=== PATIENT | female | born 1990 | race African-American/Black ===

== ENCOUNTER 2017-05-12 16:25 | Emergency (ER) | payer SELFPAY ==
[~2017-05-12] VITALS: Ht 170.2 cm; Wt 52.0 kg
[~2017-05-12 16:25] MED LIST: ALBUCI INH; CEPH500C3 PO; FLAG500T PO; PREN0.01 PO
[2017-05-12 16:27] VITALS: BP 130/95; PULSE 103; RESP 20; TEMP 98.1; O2SAT 98
[2017-05-12] MEDS ORDERED: SODIUM CHLOR 0.9% 1000 ML INJ 1,000 ML IV ONE (16:57)
[2017-05-12] MEDS ORDERED: ONDANSETRON HCL 4 MG/2 ML VIAL IVP ONE (17:00)
--- NOTE | 2017-05-12 17:12 | PD ---
HPI Chief Complaint: GI Complaint Time Seen by Provider: 16:49 Travel History International Travel<30 days: No Contact w/Intl Traveler<30days: No Traveled to known affect area: No History of Present Illness HPI 26-year-old female presents to the emergency department for evaluation of nausea and vomiting for 3 days. She states she is unable to keep any food or fluids down. Patient states that she is . She reports her last menstrual cycle was the end of March/beginning of March. She has not followed up with an painter rough. She is a G4, P2 with 2 live births and one previous . Patient states that she also has some left lower pelvic pain , especially when she vomits. She denies any urinary symptoms. She has no chronic medical problems and takes no prescribed medications. She reports one sexual partner for 4 years. She denies any abnormal vaginal discharge or risk of STDs. She has no other complaints at this time. PFSH Past Medical History Medical History: Denies Significant Hx Tetanus Vaccination: < 5 Years ?: LMP: 04/04/17 : 3 Para: 2 Past Surgical History Surgical History: No Previous Surgery Social History Alcohol Use: No Tobacco Use: No Substance Use: No Allergies-Medications (Allergen,Severity, Reaction): Coded Allergies: No Known Allergies (Unverified Adverse Reaction, Unknown, 05/12/17) Reported Meds & Prescriptions Reported Meds & Active Scripts Active No Active Prescriptions or Reported Medications Review of Systems Except as stated in HPI: all other systems reviewed are Neg Physical Exam Narrative GENERAL: Well-nourished, well-developed female patient, ambulatory. Afebrile. SKIN: Focused skin assessment warm/dry. HEAD: Normocephalic. Atraumatic. EYES: No scleral icterus. No injection or drainage. NECK: Supple, trachea midline. No JVD or lymphadenopathy. CARDIOVASCULAR: Regular rate and rhythm without murmurs, gallops, or rubs. RESPIRATORY: Breath sounds equal bilaterally. No accessory muscle use. Lungs sounds are clear to auscultation. GASTROINTESTINAL: Abdomen soft, non-tender, nondistended. Mild tenderness over left pelvic region. MUSCULOSKELETAL: No cyanosis, or edema. BACK: Nontender without obvious deformity. No CVA tenderness. Data Data Last Documented VS Vital Signs Date Time Temp Pulse Resp B/P (MAP) Pulse Ox O2 Delivery O2 Flow Rate FiO2 05/12/17 18:20 11/12/17 16:27 98.1 103 20 98 Orders Orders Beta Hcg (Quant/Titer) (05/12/17 16:57) Complete Blood Count With Diff (05/12/17 16:57) Comprehensive Metabolic Panel (05/12/17 16:57) Urinalysis - C+S If Indicated (05/12/17 16:57) Sodium Chlor 0.9% 1000 Ml Inj (Ns 1000 M (05/12/17 16:57) Ondansetron Inj (Zofran Inj) (05/12/17 17:00) Ed Urine Pregnancytest Poc (05/12/17 16:57) Us Pelvis (Ques Pr/Ect)W Trans (05/12/17 ) Labs Laboratory Tests Test 05/12/17 17:00 05/12/17 17:45 White Blood Count 5.5 TH/MM3 Red Blood Count 4.00 MIL/MM3 Hemoglobin 10.9 GM/DL Hematocrit 31.5 % Mean Corpuscular Volume 78.9 FL Mean Corpuscular Hemoglobin 27.2 PG Mean Corpuscular Hemoglobin Concent 34.4 % Red Cell Distribution Width 16.2 % Platelet Count 202 TH/MM3 Mean Platelet Volume 9.1 FL Neutrophils (%) (Auto) 52.8 % Lymphocytes (%) (Auto) 36.4 % Monocytes (%) (Auto) 8.4 % Eosinophils (%) (Auto) 1.5 % Basophils (%) (Auto) 0.9 % Neutrophils # (Auto) 2.9 TH/MM3 Lymphocytes # (Auto) 2.0 TH/MM3 Monocytes # (Auto) 0.5 TH/MM3 Eosinophils # (Auto) 0.1 TH/MM3 Basophils # (Auto) 0.1 TH/MM3 CBC Comment DIFF FINAL Differential Comment Blood Urea Nitrogen 5 MG/DL Creatinine 0.58 MG/DL Random Glucose 82 MG/DL Total Protein 7.5 GM/DL Albumin 4.1 GM/DL Calcium Level 8.9 MG/DL Alkaline Phosphatase 43 U/L Aspartate Amino Transf (AST/SGOT) 14 U/L Alanine Aminotransferase (ALT/SGPT) 20 U/L Total Bilirubin 0.6 MG/DL Sodium Level 133 MEQ/L Potassium Level 3.6 MEQ/L Chloride Level 101 MEQ/L Carbon Dioxide Level 24.2 MEQ/L Anion Gap 8 MEQ/L Estimat Glomerular Filtration Rate 155 ML/MIN Human Chorionic Gonadotropin, Quant 33232 MIU/ML Urine Color YELLOW Urine Turbidity HAZY Urine pH 7.0 Urine Specific [place] 1.020 Urine Protein TRACE mg/dL Urine Glucose (UA) NEG mg/dL Urine Ketones 40 mg/dL Urine Occult Blood NEG Urine Nitrite NEG Urine Bilirubin NEG Urine Urobilinogen 4.0 MG/DL Urine Leukocyte Esterase SMALL Urine RBC 3 /hpf Urine WBC 4 /hpf Urine Squamous Epithelial Cells 1 /hpf Urine Amorphous Sediment FEW Urine Mucus FEW /lpf Microscopic Urinalysis Comment CULT NOT INDICATED MDM Medical Decision Making Medical Screen Exam Complete: Yes Emergency Medical Condition: Yes Medical Record Reviewed: Yes Differential Diagnosis Nausea and vomiting during versus hyperemesis gravidarum versus electrolyte abnormality versus UTI versus unlikely ectopic Narrative Course 26-year-old female presents to the emergency department for evaluation of nausea and vomiting for 3 days. She also reports some mild left pelvic pain with vomiting. She reports . CBC, CMP, UA, beta hCG, urine test are ordered and pending. Patient is given normal saline 1 L IV bolus, Zofran 4 mg IV. CBC shows anemia of hemoglobin 10.9, hematocrit 31.5. [place] [address]. UA shows 40 ketones, small leukocyte esterase. UPT is positive. Before ultrasound was read by radiologist, the patient states she had to leave and left AGAINST MEDICAL ADVICE. Diagnosis Primary Impression: Left against medical advice Additional Impression: Vomiting during Scripts No Active Prescriptions or Reported Meds Disposition: 07 AGAINST MEDICAL ADVICE Isabel Quinones May 12, 2017 17:12
[2017-05-12 17:28] LABS: AUTOMATED NEUTROPHIL # 2.9 TH/MM3 (1.8-7.7); BASOPHIL # 0.1 TH/MM3 (0-0.2); BASOPHIL % 0.9 % (0.0-2.0); EOSINOPHIL # 0.1 TH/MM3 (0-0.4); EOSINOPHIL % 1.5 % (0.0-4.0); HEMATOCRIT 31.5 % (35.0-46.0); HEMO FLAGS DIFF FINAL; LYMPH % 36.4 % (9.0-44.0); MEAN CELL VOLUME 78.9 FL (80.0-100.0); MEAN CORPUSCULAR HEMOGLOBIN 27.2 PG (27.0-34.0); MEAN CORPUSCULAR HGB CONC 34.4 % (32.0-36.0); MONO % 8.4 % (0.0-8.0); NEUT % 52.8 % (16.0-70.0); PLATELET COUNT 202 TH/MM3 (150-450); RED CELL DISTRIBUTION WIDTH 16.2 % (11.6-17.2); WHITE BLOOD COUNT 5.5 TH/MM3 (4.0-11.0)
[2017-05-12 17:30] LABS: ALT (GPT) 20 U/L (10-53); ANION GAP 8 MEQ/L (5-15); AST (GOT) 14 U/L (15-37); BICARBONATE 24.2 MEQ/L (21.0-32.0); BLOOD UREA NITROGEN 5 MG/DL (7-18); CHLORIDE 101 MEQ/L (98-107); GLOMERULAR FILTRATION RATE 155 ML/MIN (>89); POTASSIUM 3.6 MEQ/L (3.5-5.1); SODIUM (NA) 133 MEQ/L (136-145)
[2017-05-12 17:48] LABS: ALKALINE PHOSPHATASE 43 U/L (45-117); BETA HCG QUANT 28041 MIU/ML (0-5); TOTAL BILIRUBIN ADULT 0.6 MG/DL (0.2-1.0)
[2017-05-12 18:19] LABS: BLOOD, URINE NEG (NEG); GLUCOSE,URINE NEG (NEG); KETONE, URINE 40 mg/dL (NEG); MUCUS URINE FEW /lpf (OCC); NITRITE,URINE NEG (NEG); SQUAMOUS EPITHELIAL CELL URINE 1 /hpf (0-5); URINE COLOR YELLOW (YELLW/STRAW)
[2017-05-12 18:24] LABS: COMMENT (UR) CULT NOT INDICATED; CULTURE IF INDICATED CULT NOT INDICATED
--- NOTE | 2017-05-12 18:33 | RADRPT ---
EXAM DATE/TIME: 05/12/2017 17:35 [facility] COMPARISON: No previous studies available for comparison. INDICATIONS : Pelvic pain. LAB(S): Beta-hC MEDICAL HISTORY : . SURGICAL HISTORY : None. ENCOUNTER: Initial ACUITY: 1 month PAIN SCORE: 8/10 LOCATION: Bilateral pelvis MEASUREMENTS: UTERUS: 8.7 x 6.0 x 4.9 cm ENDOMETRIAL STRIPE: 17 mm RIGHT OVARY: 6.0 x 5.4 x 5.5 cm LEFT OVARY: Not visualized. cm FREE FLUID: Yes CROWN RUMP LENGTH: 0.3 = 6 WKS 0 DAYS FHR: 167 BPM FINDINGS: UTERUS: Uterus is retroverted. Endometrial gestational sac measures 1.7 cm in diameter corresponding to a ges tational age of 6 weeks. pole is identified measuring 3 mm in length again corresponding to a g estational age of 6 weeks. heart motions are identified 167 beats per minute. Yolk sac is prese nt. RIGHT OVARY: Dominant right ovarian cyst occupies most of the parenchyma and measures 5.4 x 5.1 x 4.1 cm LEFT OVARY: Left ovary was not visualized. MISCELLANEOUS: Free fluid was identified. CONCLUSION: 1. Viable intrauterine with an estimated gestational age of 6 weeks. 2. Dominant right ovarian cyst measures 5.4 cm in diameter and may be contributing to current clinica l symptoms. Small amount of free fluid was identified. 3. Left ovary could not be identified on the transabdominal exam. Due to discomfort, the patient refu sed any further transvaginal examination. Wayne Mittal MD on May 12, 2017 at 18:27 Board Certified Radiologist. This report was verified electronically.
== END 2017-05-12 18:30 | disposition left against medical advice (07) ==
LOC: NEPE 16:25
DX: O21.9 Vomiting of pregnancy, unspecified (principal); O26.891 Other specified pregnancy related conditions, first trimester; R10.2 Pelvic and perineal pain; Z3A.01 Less than 8 weeks gestation of pregnancy
CPT/HCPCS: 76700; 76817; 80053; 81001; 84702; 84703; 85025; 96374; 99285; J2405; J7030

== ENCOUNTER 2017-06-28 13:52 | Emergency (ER) | payer OTHER ==
[~2017-06-28] VITALS: Ht 170.2 cm; Wt 53.5 kg
[2017-06-28 13:54] VITALS: BP 120/79; PULSE 101; RESP 20; TEMP 99.2; O2SAT 99
[2017-06-28 15:15] LABS: AUTOMATED NEUTROPHIL # 6.2 TH/MM3 (1.8-7.7); BASOPHIL % 0.4 % (0.0-2.0); EOSINOPHIL # 0.1 TH/MM3 (0-0.4); EOSINOPHIL % 1.5 % (0.0-4.0); HEMATOCRIT 35.6 % (35.0-46.0); HEMOGLOBIN 11.5 GM/DL (11.6-15.3); LYMPH % 22.9 % (9.0-44.0); LYMPHOCYTE # 2.1 TH/MM3 (1.0-4.8); MEAN CELL VOLUME 82.1 FL (80.0-100.0); MEAN CORPUSCULAR HEMOGLOBIN 26.5 PG (27.0-34.0); MEAN CORPUSCULAR HGB CONC 32.3 % (32.0-36.0); MEAN PLATELET VOLUME 8.5 FL (7.0-11.0); MONO % 6.7 % (0.0-8.0); MONOCYTE # 0.6 TH/MM3 (0-0.9); NEUT % 68.5 % (16.0-70.0); PLATELET COUNT 255 TH/MM3 (150-450); RED BLOOD COUNT 4.33 MIL/MM3 (4.00-5.30); RED CELL DISTRIBUTION WIDTH 15.8 % (11.6-17.2); WHITE BLOOD COUNT 9.1 TH/MM3 (4.0-11.0)
[2017-06-28 15:19] LABS: BACTERIA, URINE RARE /hpf; BILIRUBIN, URINE NEG (NEG); BLOOD, URINE TRACE (NEG); GLUCOSE,URINE 70 mg/dL (NEG); KETONE, URINE NEG (NEG); NITRITE,URINE NEG (NEG); SQUAMOUS EPITHELIAL CELL URINE 5 /hpf (0-5); URINE COLOR LIGHT-YELLOW (YELLW/STRAW); URINE LEUKOCYTE ESTERASE LARGE (NEG)
[2017-06-28 15:32] LABS: ALBUMIN 3.6 GM/DL (3.4-5.0); AST (GOT) 14 U/L (15-37); BLOOD UREA NITROGEN 10 MG/DL (7-18); CALCIUM 9.5 MG/DL (8.5-10.1); CHLORIDE 103 MEQ/L (98-107); CREATININE 0.64 MG/DL (0.50-1.00); GLOMERULAR FILTRATION RATE 138 ML/MIN (>89); GLUCOSE,RANDOM 89 MG/DL (74-106); SODIUM (NA) 137 MEQ/L (136-145)
--- NOTE | 2017-06-28 15:39 | PD ---
HPI Chief Complaint: Related Problem Time Seen by Provider: 15:07 Travel History International Travel<30 days: No Contact w/Intl Traveler<30days: No Traveled to known affect area: No History of Present Illness HPI The patient is a 26-year-old [place] female who presents to the emergency department for lower abdominal cramping and . The patient is a with one previous AB who states her last menstrual cycle was approximately March 19, 2017. She has had a positive test but has not had any care. She complains of lower abdominal cramping as well as white vaginal discharge which is slightly thicker than normal. She also complains of mild dysuria without any frequency or urgency. She denies any vaginal bleeding. The patient denies any nausea, vomiting, diarrhea, or constipation. Symptoms are mild to moderate and there are no alleviating or exacerbating factors. PFSH Past Medical History Kidney Stones: Yes ?: LMP: March : 3 Para: 2 Past Surgical History Surgical History: No Previous Surgery Social History Alcohol Use: No Tobacco Use: No Substance Use: No Allergies-Medications (Allergen,Severity, Reaction): Coded Allergies: No Known Allergies (Unverified Adverse Reaction, Unknown, 06/28/17) Reported Meds & Prescriptions Reported Meds & Active Scripts Active Zofran (Ondansetron HCl) 4 Mg Tab 4 Mg PO Q6HR PRN Metronidazole 500 Mg Tab 500 Mg PO TID Keflex (Cephalexin) 500 Mg Capsule 500 Mg PO Q6H 7 Days Review of Systems Except as stated in HPI: all other systems reviewed are Neg General / Constitutional: No: Fever Cardiovascular: No: Chest Pain or Discomfort Gastrointestinal: No: Nausea, Vomiting, Diarrhea, Abdominal Pain Genitourinary: Positive: Dysuria, Pelvic Pain (cramping), Discharge, No: Urgency, Frequency, Vaginal Bleeding Musculoskeletal: No: Myalgias Physical Exam Narrative GENERAL: Awake, alert, pleasant 26-year-old female who appears her stated age and is in no acute respiratory distress. SKIN: Focused skin assessment warm/dry. HEAD: Atraumatic. Normocephalic. EYES: Pupils equal and round. No scleral icterus. No injection or drainage. ENT: No nasal bleeding or discharge. Mucous membranes pink and moist. NECK: Trachea midline. No JVD. CARDIOVASCULAR: Regular rate and rhythm. No murmur appreciated. Heart rate in the 90s. RESPIRATORY: No accessory muscle use. Clear to auscultation. Breath sounds equal bilaterally. GASTROINTESTINAL: Abdomen soft, gravid inferior to the umbilicus. Back: No CVA tenderness. Pelvic: The exam was performed in the presence of a female nurse. External examination reveals no rashes or lesions. Speculum examination reveals a fair amount of white creamy discharge in the vaginal vault. Cervix is closed with mild erythema over the superior aspect of the os. No adnexal tenderness. No cervical motion tenderness. MUSCULOSKELETAL: No obvious deformities. No clubbing. No cyanosis. No edema. NEUROLOGICAL: Awake and alert. No obvious cranial nerve deficits. Motor grossly within normal limits. Normal speech. PSYCHIATRIC: Appropriate mood and affect; insight and judgment normal. Data Data Last Documented VS Vital Signs Date Time Temp Pulse Resp B/P (MAP) Pulse Ox O2 Delivery O2 Flow Rate FiO2 06/28/17 18:31 88 15 99 06/28/17 13:54 99.2 Room Air Orders Orders Beta Hcg (Quant/Titer) (06/28/17 14:01) Complete Blood Count With Diff (06/28/17 14:01) Comprehensive Metabolic Panel (06/28/17 14:01) Urinalysis - C+S If Indicated (06/28/17 14:01) Urine Culture (06/28/17 14:40) Ed Poc Ultrasound (06/28/17 15:23) Sodium Chlor 0.9% 1000 Ml Inj (Ns 1000 M (06/28/17 15:45) Wet Prep Profile (06/28/17 15:58) Ed Discharge Order (06/28/17 18:27) Labs Laboratory Tests Test 06/28/17 14:40 06/28/17 14:50 06/28/17 16:20 Urine Color LIGHT-YELLOW Urine Turbidity HAZY Urine pH 7.0 Urine Specific [place] 1.006 Urine Protein NEG mg/dL Urine Glucose (UA) 70 mg/dL Urine Ketones NEG mg/dL Urine Occult Blood TRACE Urine Nitrite NEG Urine Bilirubin NEG Urine Urobilinogen LESS THAN 2.0 MG/DL Urine Leukocyte Esterase LARGE Urine RBC 3 /hpf Urine WBC 11 /hpf Urine Squamous Epithelial Cells 5 /hpf Urine Bacteria RARE /hpf Microscopic Urinalysis Comment CULTURE INDICATED White Blood Count 9.1 TH/MM3 Red Blood Count 4.33 MIL/MM3 Hemoglobin 11.5 GM/DL Hematocrit 35.6 % Mean Corpuscular Volume 82.1 FL Mean Corpuscular Hemoglobin 26.5 PG Mean Corpuscular Hemoglobin Concent 32.3 % Red Cell Distribution Width 15.8 % Platelet Count 255 TH/MM3 Mean Platelet Volume 8.5 FL Neutrophils (%) (Auto) 68.5 % Lymphocytes (%) (Auto) 22.9 % Monocytes (%) (Auto) 6.7 % Eosinophils (%) (Auto) 1.5 % Basophils (%) (Auto) 0.4 % Neutrophils # (Auto) 6.2 TH/MM3 Lymphocytes # (Auto) 2.1 TH/MM3 Monocytes # (Auto) 0.6 TH/MM3 Eosinophils # (Auto) 0.1 TH/MM3 Basophils # (Auto) 0.0 TH/MM3 CBC Comment DIFF FINAL Differential Comment Blood Urea Nitrogen 10 MG/DL Creatinine 0.64 MG/DL Random Glucose 89 MG/DL Total Protein 7.7 GM/DL Albumin 3.6 GM/DL Calcium Level 9.5 MG/DL Alkaline Phosphatase 53 U/L Aspartate Amino Transf (AST/SGOT) 14 U/L Alanine Aminotransferase (ALT/SGPT) 13 U/L Total Bilirubin 0.3 MG/DL Sodium Level 137 MEQ/L Potassium Level 3.4 MEQ/L Chloride Level 103 MEQ/L Carbon Dioxide Level 27.0 MEQ/L Anion Gap 7 MEQ/L Estimat Glomerular Filtration Rate 138 ML/MIN Human Chorionic Gonadotropin, Quant 04596 MIU/ML Clue Cells (Wet Prep) PRESENT Vaginal Trichomonas (Wet Prep) NONE SEEN Vaginal Yeast (Wet Prep) NONE SEEN MDM Medical Decision Making Medical Screen Exam Complete: Yes Emergency Medical Condition: Yes Medical Record Reviewed: Yes Interpretation(s) Laboratory Tests Test 06/28/17 14:40 06/28/17 14:50 06/28/17 16:20 Urine Color LIGHT-YELLOW Urine Turbidity HAZY Urine pH 7.0 Urine Specific [place] 1.006 Urine Protein NEG mg/dL Urine Glucose (UA) 70 mg/dL Urine Ketones NEG mg/dL Urine Occult Blood TRACE Urine Nitrite NEG Urine Bilirubin NEG Urine Urobilinogen LESS THAN 2.0 MG/DL Urine Leukocyte Esterase LARGE Urine RBC 3 /hpf Urine WBC 11 /hpf Urine Squamous Epithelial Cells 5 /hpf Urine Bacteria RARE /hpf Microscopic Urinalysis Comment CULTURE INDICATED White Blood Count 9.1 TH/MM3 Red Blood Count 4.33 MIL/MM3 Hemoglobin 11.5 GM/DL Hematocrit 35.6 % Mean Corpuscular Volume 82.1 FL Mean Corpuscular Hemoglobin 26.5 PG Mean Corpuscular Hemoglobin Concent 32.3 % Red Cell Distribution Width 15.8 % Platelet Count 255 TH/MM3 Mean Platelet Volume 8.5 FL Neutrophils (%) (Auto) 68.5 % Lymphocytes (%) (Auto) 22.9 % Monocytes (%) (Auto) 6.7 % Eosinophils (%) (Auto) 1.5 % Basophils (%) (Auto) 0.4 % Neutrophils # (Auto) 6.2 TH/MM3 Lymphocytes # (Auto) 2.1 TH/MM3 Monocytes # (Auto) 0.6 TH/MM3 Eosinophils # (Auto) 0.1 TH/MM3 Basophils # (Auto) 0.0 TH/MM3 CBC Comment DIFF FINAL Differential Comment Blood Urea Nitrogen 10 MG/DL Creatinine 0.64 MG/DL Random Glucose 89 MG/DL Total Protein 7.7 GM/DL Albumin 3.6 GM/DL Calcium Level 9.5 MG/DL Alkaline Phosphatase 53 U/L Aspartate Amino Transf (AST/SGOT) 14 U/L Alanine Aminotransferase (ALT/SGPT) 13 U/L Total Bilirubin 0.3 MG/DL Sodium Level 137 MEQ/L Potassium Level 3.4 MEQ/L Chloride Level 103 MEQ/L Carbon Dioxide Level 27.0 MEQ/L Anion Gap 7 MEQ/L Estimat Glomerular Filtration Rate 138 ML/MIN Human Chorionic Gonadotropin, Quant 31182 MIU/ML Differential Diagnosis Differential diagnosis includes UTI, cervicitis, vaginitis, PID, , threatened AB, dehydration. Narrative Course Protocol labs were performed in triage by nursing staff. Upon arrival to the room a bedside ultrasound was performed using a curvilinear probe which reveals a fetus that is IUP, there is positive activity and positive movement. According to the calendar, March 19, the patient would be approximately 14 weeks and 3 days. OB ED will not take the patient until 16 weeks. Therefore, pelvic exam was performed at bedside for wet prep and to evaluate the cervix with a female nurse in the room. The patient declined an IV for IV fluids, states that she is scared needles. Therefore, she was given oral fluids. Pelvic exam was performed and wet prep was sent to lab. I reviewed the patient's EMR, she had blood work on September 22, 2013 which revealed she is O+, no indication for RhoGAM. UA reveals UTI. Wet prep is positive for bacterial vaginosis, therefore, will be treated with Flagyl. She is advised to follow-up with obstetrics. Diagnosis Primary Impression: Pelvic pain in Additional Impression: UTI (urinary tract infection) Qualified Codes: N30.00 - Acute cystitis without hematuria Patient Instructions: General Instructions Additional Instructions: Please provide the patient a copy of her lab work and urine results at discharge. Follow-up with an gold leaf layer. Take a vitamin daily. Return for pain or bleeding. Med/Other Pt SpecificInfo: Prescription(s) given Scripts Ondansetron (Zofran) 4 Mg Tab 4 MG PO Q6HR Y for NAUSEA OR VOMITING, #15 TAB 0 Refills Prov: Olegario Antoine MD 06/28/17 Metronidazole (Metronidazole) 500 Mg Tab 500 MG PO TID for Infection, #20 TAB 0 Refills Prov: Olegario Antoine MD 06/28/17 Cephalexin (Keflex) 500 Mg Capsule 500 MG PO Q6H for Infection for 7 Days, #28 CAP 0 Refills Prov: Lefty Torres MD 06/28/17 Disposition: 01 DISCHARGE HOME Condition: Stable Lefty Torres MD Jun 28, 2017 15:39
[2017-06-28] MEDS ORDERED: SODIUM CHLOR 0.9% 1000 ML INJ 1,000 ML IV ONE (15:45)
[2017-06-28 15:50] LABS: ALKALINE PHOSPHATASE 53 U/L (45-117); ALT (GPT) 13 U/L (10-53); TOTAL BILIRUBIN ADULT 0.3 MG/DL (0.2-1.0); TOTAL PROTEIN 7.7 GM/DL (6.4-8.2)
[2017-06-28] MEDS ORDERED: CEPH-460 PO (16:54)
[2017-06-28] MEDS ORDERED: METR1TAB76 PO (18:27)
[2017-06-28] MEDS ORDERED: ZOFR4TAB PO (18:36)
== END 2017-06-28 18:37 | disposition home or self-care (01) ==
LOC: NEPD 13:52
DX: O23.42 Unspecified infection of urinary tract in pregnancy, second trimester (principal); O23.592 Infection of other part of genital tract in pregnancy, second trimester; N76.0 Acute vaginitis; B96.89 Other specified bacterial agents as the cause of diseases classified elsewhere; Z3A.14 14 weeks gestation of pregnancy; Z34.92 Encounter for supervision of normal pregnancy, unspecified, second trimester; Z87.442 Personal history of urinary calculi
CPT/HCPCS: 80053; 81001; 84702; 85025; 87086; 87210; 99284; J7030

== ENCOUNTER 2017-10-20 22:50 | Emergency (ER) | payer MEDICAID, OTHER ==
[~2017-10-20 22:50] MED LIST changes: -ALBUCI INH; +CEPH-460 PO; -CEPH500C3 PO; -FLAG500T PO; +METR1TAB76 PO; -PREN0.01 PO; +ZOFR4TAB PO
--- NOTE | 2017-10-20 23:55 | PD ---
HPI Chief Complaint ctxs, ? lof Date Seen: Oct 20, 2017 Time Seen: 23:49 Travel History International Travel<30 Days: No Contact w/Intl Traveler<30Days: No Known Affected Area: No History of Present Illness HPI pt. is a 27 y/o @ 29 weeks present w/ c/o ctxs. pt. states been having ctxs thruout the day that have increased in freq and insiyt. pt. also note clear d/c, and not sure if broke her water. +FM, no vb. amniosure - Weeks Gestation: 29 Para: 2 : 4 History Past Medical History Medical History: Denies Significant Hx Obstetric History Obstetric History , x 2, tab x 1 Past Surgical History Surgical History: No Previous Surgery Family History Family History: Negative Social History Alcohol Use: No Tobacco Use: No Substance Abuse: No Allergies-Medications (Allergen,Severity, Reaction): Coded Allergies: No Known Allergies (Unverified Adverse Reaction, Unknown, 06/28/17) Home Meds Active Scripts Ondansetron (Zofran) 4 Mg Tab, 4 MG PO Q6HR Y for NAUSEA OR VOMITING, #15 TAB 0 Refills Prov:Olegario Antoine MD 06/28/17 Metronidazole (Metronidazole) 500 Mg Tab, 500 MG PO TID for Infection, #20 TAB 0 Refills Prov:Olegario Antoine MD 06/28/17 Cephalexin (Keflex) 500 Mg Capsule, 500 MG PO Q6H for Infection for 7 Days, #28 CAP 0 Refills Prov:Lefty Torres MD 06/28/17 Review of Systems Except as stated in HPI: all other systems reviewed are Neg Physical Exam Narrative GENERAL: Well-nourished, well-developed patient. SKIN: Warm and dry. HEAD: Normocephalic and atraumatic. EYES: No scleral icterus. No injection or drainage. ENT: No nasal drainage noted. Mucous membranes pink. Airway patent. NECK: Supple, trachea midline. No JVD. CARDIOVASCULAR: Regular rate and rhythm without murmurs, gallops, or rubs. RESPIRATORY: Breath sounds equal bilaterally. No accessory muscle use. ABDOMEN/GI: Abdomen soft, non-tender, bowel sounds present, no rebound, no guarding Gravid GENITOURINARY: External Genitalia: intact and normal in appearance Cervix:posterior Dilatation: 1 Effacement: long Station: high Membranes: intact, amniosure - Uterine Contractions: irreg FHT's: Category: 1 Reactive: + Variability: mod Decels: danial EXTREMITIES: No cyanosis or edema. BACK: Nontender without obvious deformity. No CVA tenderness. NEUROLOGICAL: Awake and alert. Motor and sensory grossly within normal limits. Five out of 5 muscle strength in all muscle groups. Normal speech. Data Data Vital Signs Reviewed: Yes Orders Orders Urinalysis - C+S If Indicated (10/20/17 23:46) [facility] Medical Record Reviewed: Yes Plan pt. not in active labor. pt. given dose of terbutaline w/ spacing of ctxs. pt. cervix rechecked w/o change. pt. w/ uti, macrobid 100mg bid for 5 days. condtion d/w pt. all ? answered. pt. to be d/c to home. given precautions for return. f/u as sched. Diagnosis Diagnosis: Primary Impression: Uterine contractions during Additional Impression: 29 weeks gestation of Disposition: DISCHARGE HOME Max Mccracken Jr., MD Oct 20, 2017 23:55
[2017-10-21 00:44] LABS: AMORPHOUS SEDIMENT, URINE RARE; BACTERIA, URINE OCC /hpf; BILIRUBIN, URINE NEG (NEG); BLOOD, URINE NEG (NEG); GLUCOSE,URINE NEG (NEG); HYALINE CAST, URINE 2 /lpf (RARE); KETONE, URINE NEG (NEG); MUCUS URINE FEW /lpf (OCC); NITRITE,URINE NEG (NEG); SQUAMOUS EPITHELIAL CELL URINE 3 /hpf (0-5); URINE COLOR YELLOW (YELLW/STRAW); URINE LEUKOCYTE ESTERASE LARGE (NEG)
[2017-10-21] MEDS ORDERED: ACETAMINOPHEN 500 MG CPLT PO ONE (00:45)
[2017-10-21] MEDS ORDERED: TERBUTALINE INJ 1 MG/ML AMP ONE (01:30)
[2017-10-21] MEDS ORDERED: diphenhydrAMINE HCL 50 MG CAP PO ONE (02:30)
== END 2017-10-21 02:50 | disposition home or self-care (01) ==
LOC: HOBED 22:50
DX: O26.93 Pregnancy related conditions, unspecified, third trimester (principal); O23.43 Unspecified infection of urinary tract in pregnancy, third trimester; Z3A.29 29 weeks gestation of pregnancy
CPT/HCPCS: 59025; 81001; 84112; 96372; 99284; J3105; Q0163

== ENCOUNTER 2017-12-19 22:35 | Inpatient (IN) | payer MEDICAID ==
[~2017-12-19] VITALS: Ht 170.2 cm; Wt 70.0 kg
--- NOTE | 2017-12-19 23:30 | HHI.HP ---
HPI Chief Complaint Painful swelling in limbs and under her underarms, severe abdominal pain comes and goes all day, she saw spots in front of her eyes just now in OB ED Date Seen: Dec 19, 2017 Time Seen: 23:22 Travel History International Travel<30 Days: No Contact w/Intl Traveler<30Days: No Known Affected Area: No History of Present Illness HPI Patient 27-year-old black female A1 at 37 --38 weeks who presents complaining of severe abdominal pain pain goes down in her legs and groin all day, complains of severe swelling with pain in her aches both legs and under her underarms, no bleeding, leakage of fluid, she is melonie every 3-4 minutes and the heart rate tracing is reactive. Her blood pressure is 142 /87 and she says she has no history of hypertension she describes taken her blood pressure at home it was 140s /90 earlier today. Here on OB ED while we were in the room the patient said she is having" the spots in front of my eyes" , she denies a headache Weeks Gestation: 37 Para: 2 : 4 Miscarriage: 1 History Obstetric History Obstetric History 2 vaginal deliveries no history of hypertension in with the other 2 pregnancies Social History Alcohol Use: No Tobacco Use: No Substance Abuse: No Allergies-Medications (Allergen,Severity, Reaction): Coded Allergies: No Known Allergies (Unverified Adverse Reaction, Unknown, 06/28/17) Home Meds Active Scripts Ondansetron (Zofran) 4 Mg Tab, 4 MG PO Q6HR Y for NAUSEA OR VOMITING, #15 TAB 0 Refills Prov:Olegario Antoine MD 06/28/17 Metronidazole (Metronidazole) 500 Mg Tab, 500 MG PO TID for Infection, #20 TAB 0 Refills Prov:Olegario Antoine MD 06/28/17 Cephalexin (Keflex) 500 Mg Capsule, 500 MG PO Q6H for Infection for 7 Days, #28 CAP 0 Refills Prov:Lefty Torres MD 06/28/17 Review of Systems General / Constitutional: No: Fever, Weight Gain, Chills, Other Eyes: Visual changes, No: Diploplia, Blurred Vision, Pain, Photophobia HENT: No: Headaches, Vertigo, Lightheadedness Cardiovascular: No: Irregular Rhythm, Chest Pain or Discomfort, Palpitations, Tachycardia, Syncope, Varicosities, Edema, Cyanosis Respiratory: No: Cough, Short of Breath, Other Gastrointestinal: Abdominal Pain, No: Nausea, Vomiting, Diarrhea Genitourinary: No: Decreased Urinary Output, Oliguria Musculoskeletal: Edema, No: Limited ROM, Weakness, Cramping, Pain Skin: No Rash, No Itching, No Dryness, No Lumps, No Change in Pigmentation, No Change in Nails, No Alopecia, No Lesions Neurologic: No: Weakness, Dizziness, Syncope, Focal Abnormalities, Coordination Problem, Headache, Slurred Speech, Seizures Psychiatric: No: Depression, Suicidal Ideations, Homicidal Ideation Endocrine: No: Heat Intolerance, Cold Intolerance, Polydipsia, Polyuria, Other Physical Exam Narrative GENERAL: Well-nourished, well-developed patient. SKIN: Warm and dry. HEAD: Normocephalic and atraumatic. EYES: No scleral icterus. No injection or drainage. ENT: No nasal drainage noted. Mucous membranes pink. Airway patent. NECK: Supple, trachea midline. No JVD. CARDIOVASCULAR: Regular rate and rhythm without murmurs, gallops, or rubs. RESPIRATORY: Breath sounds equal bilaterally. No accessory muscle use. BREASTS: Bilateral exam showed no masses , no retractions, no nipple discharge. The tail of the breast on both side is enlarged up under the axilla and that is the swelling she is describing in the axillary tail of the breasts are swollen ABDOMEN/GI: Abdomen soft, non-tender, bowel sounds present, no rebound, no guarding Gravid to [37-] weeks size Fundal Height: [35-] GENITOURINARY: External Genitalia: intact and normal in appearance BUS glands: [-] Cervix: [-mid] Dilatation: [3-4-] Effacement: [-70] Station: [-2] Presentation: [vtx-] Membranes: [intact ] Uterine Contractions: [-q 3-4 min] FHT's: Category: [1-] Baseline: [133-] Reactive: [R-] Variability: [mod-] Decels: [-0] EXTREMITIES: No cyanosis 3+ pitting edema in pretibial area painful. BACK: Nontender without obvious deformity. No CVA tenderness. NEUROLOGICAL: Awake and alert. Motor and sensory grossly within normal limits. Five out of 5 muscle strength in all muscle groups. Normal speech. Caprini VTE Risk Assessment Caprini VTE Risk Assessment: No/Low Risk (score <= 1) Caprini Risk Assessment Model Point Value = 1 Point Value = 2 Point Value = 3 Point Value = 5 Age 41-60 Minor surgery BMI > 25 kg/m2 Swollen legs Varicose veins or History of unexplained or recurrent spontaneous Oral contraceptives or hormone replacement Sepsis (< 1 month) Serious lung disease, including pneumonia (< 1 month) Abnormal pulmonary function Acute myocardial infarction Congestive heart failure (< 1 month) History of inflammatory bowel disease Medical patient at bed rest Age 61-74 Arthroscopic surgery Major open surgery (> 45 min) Laparoscopic surgery (> 45 min) Malignancy Confined to bed (> 72 hours) Immobilizing plaster cast Central venous access Age >= 75 History of VTE Family history of VTE Factor V Leiden Prothrombin [id number] Lupus anticoagulant Anticardiolipin antibodies Elevated serum homocysteine Heparin-induced thrombocytopenia Other congenital or acquired thrombophilia Stroke (< 1 month) Elective arthroplasty Hip, pelvis, or leg fracture Acute spinal cord injury (< 1 month) Prophylaxis Regimen Total Risk Factor Score Risk Level Prophylaxis Regimen 0-1 Low Early ambulation 2 Moderate Order ONE of the following: *Sequential Compression Device (SCD) *Heparin 5000 units SQ BID 3-4 Higher Order ONE of the following medications: *Heparin 5000 units SQ TID *Enoxaparin/Lovenox 40 mg SQ daily (WT < 150 kg, CrCl > 30 mL/min) *Enoxaparin/Lovenox 30 mg SQ daily (WT < 150 kg, CrCl > 10-29 mL/min) *Enoxaparin/Lovenox 30 mg SQ BID (WT < 150 kg, CrCl > 30 mL/min) AND/OR *Sequential Compression Device (SCD) 5 or more Highest Order ONE of the following medications: *Heparin 5000 units SQ TID (Preferred with Epidurals) *Enoxaparin/Lovenox 40 mg SQ daily (WT < 150 kg, CrCl > 30 mL/min) *Enoxaparin/Lovenox 30 mg SQ daily (WT < 150 kg, CrCl > 10-29 mL/min) *Enoxaparin/Lovenox 30 mg SQ BID (WT < 150 kg, CrCl > 30 mL/min) AND *Sequential Compression Device (SCD) Data Data Group B Strep: Negative Assessment/Plan Assessment and Plan Impression--37-38 week intrauterine with hypertension in , severe pedal edema, early labor with contractions every 3-4 minutes cervical dilation of 3-4 cm/70/-2 Plan-admit to labor and delivery, check PIH lab, if blood pressures persistently elevated above the admitting value begin magnesium sulfate and plan to augment her labor as needed to affect cervical change and vaginal delivery Kenyon Abreu II, MD Dec 19, 2017 23:30
[2017-12-19] MEDS ORDERED: LACTATED RINGER'S 1000 ML INJ 1,000 ML IV SCH (23:31)
[2017-12-19] MEDS ORDERED: LACTATED RINGER'S 1000 ML INJ 1,000 ML IV PRN (23:31)
[2017-12-19] MEDS ORDERED: OXYTOCIN 30 UNITS-500ML PREMIX 500 ML IV ONE (23:45)
[2017-12-19] MEDS ORDERED: CITRIC ACID-SODIUM CITRATE LIQ 30 ML UDC PO SCH (23:45)
[2017-12-19] MEDS ORDERED: LIDOCAINE HCL 1% 50 ML VIAL I-DERMAL PRN (23:45)
[2017-12-19] MEDS ORDERED: SODIUM CHLORID 0.9% 500 ML INJ 500 ML IV PRN (23:45)
[2017-12-19] MEDS ORDERED: MINERAL OIL 10 ML VIAL TOPICAL PRN (23:45)
[2017-12-19] MEDS ORDERED: LIDOCAINE HCL 1% 50 ML VIAL INFIL PRN (23:45)
[2017-12-19] MEDS ORDERED: SODIUM CHLOR 0.9% 1000 ML INJ 1,000 ML IV PRN (23:51)
[2017-12-20] VITALS (68 sets, daily range): BP systolic 109–155; BP diastolic 70–117; PULSE 50–98; RESP 16–20; TEMP 97.7–98.7
[2017-12-20 00:59] LABS: AUTOMATED NEUTROPHIL # 6.1 TH/MM3 (1.8-7.7); BASOPHIL % 0.3 % (0.0-2.0); EOSINOPHIL # 0.1 TH/MM3 (0-0.4); EOSINOPHIL % 1.3 % (0.0-4.0); HEMOGLOBIN 8.6 GM/DL (11.6-15.3); LYMPH % 25.3 % (9.0-44.0); LYMPHOCYTE # 2.4 TH/MM3 (1.0-4.8); MEAN CELL VOLUME 72.5 FL (80.0-100.0); MEAN CORPUSCULAR HEMOGLOBIN 22.9 PG (27.0-34.0); MEAN CORPUSCULAR HGB CONC 31.6 % (32.0-36.0); MEAN PLATELET VOLUME 10.5 FL (7.0-11.0); MONO % 7.9 % (0.0-8.0); MONOCYTE # 0.7 TH/MM3 (0-0.9); NEUT % 65.2 % (16.0-70.0); PLATELET COUNT 162 TH/MM3 (150-450); RED BLOOD COUNT 3.73 MIL/MM3 (4.00-5.30); RED CELL DISTRIBUTION WIDTH 15.8 % (11.6-17.2); WHITE BLOOD COUNT 9.3 TH/MM3 (4.0-11.0)
[2017-12-20 01:16] LABS: ALBUMIN 2.9 GM/DL (3.4-5.0); ALT (GPT) 12 U/L (10-53); AST (GOT) 18 U/L (15-37); BICARBONATE 23.6 MEQ/L (21.0-32.0); BLOOD UREA NITROGEN 5 MG/DL (7-18); CALCIUM 8.8 MG/DL (8.5-10.1); CHLORIDE 104 MEQ/L (98-107); CREATININE 0.61 MG/DL (0.50-1.00); GLOMERULAR FILTRATION RATE 145 ML/MIN (>89); GLUCOSE,RANDOM 73 MG/DL (74-106); SODIUM (NA) 140 MEQ/L (136-145)
[2017-12-20 01:18] LABS: ALKALINE PHOSPHATASE 198 U/L (45-117); TOTAL BILIRUBIN ADULT 0.4 MG/DL (0.2-1.0); TOTAL PROTEIN 7.6 GM/DL (6.4-8.2)
[2017-12-20 01:29] LABS: BACTERIA, URINE RARE /hpf; BILIRUBIN, URINE NEG (NEG); BLOOD, URINE NEG (NEG); GLUCOSE,URINE NEG (NEG); KETONE, URINE TRACE mg/dL (NEG); MUCUS URINE FEW /lpf (OCC); NITRITE,URINE NEG (NEG); SQUAMOUS EPITHELIAL CELL URINE 2 /hpf (0-5); URINE COLOR YELLOW (YELLW/STRAW); URINE LEUKOCYTE ESTERASE TRACE (NEG)
[2017-12-20] MEDS ORDERED: OXYTOCIN 30 UNITS-500ML PREMIX 500 ML IV PRN (08:45)
--- NOTE | 2017-12-20 09:49 | PD.OB.ANTE ---
Subjective Interval History No complaints or changes at this time. Pedal edema is mildly improved. Blood pressures have ranged from the 130s-140s over 80s since admission. Patient denies any chest pain, shortness of breath or right upper quadrant pain. Objective Vital Signs Vital Signs Date Time Temp Pulse Resp B/P (MAP) Pulse Ox O2 Delivery O2 Flow Rate FiO2 12/20/17 09:15 16 12/20/17 09:07 98.1 12/20/17 09:04 64 141/88 (105) 12/20/17 08:34 70 142/89 (106) 12/20/17 08:32 98 146/100 (115) 12/20/17 07:15 16 12/20/17 07:05 71 126/70 (88) 12/20/17 06:24 87 109/73 (85) 12/20/17 06:22 16 12/20/17 05:28 18 12/20/17 05:27 50 144/80 (101) 12/20/17 04:12 97.8 18 12/20/17 04:11 81 145/88 (107) 12/20/17 03:16 18 12/20/17 03:15 67 140/89 (106) 12/20/17 02:07 18 12/20/17 02:02 74 141/81 (101) 12/20/17 01:11 78 142/79 (100) 12/20/17 01:10 20 12/20/17 00:15 98.4 18 12/20/17 00:14 81 151/101 (118) Lab & Micro Results Test 12/19/17 23:50 12/20/17 01:10 White Blood Count 9.3 TH/MM3 Red Blood Count 3.73 MIL/MM3 Hemoglobin 8.6 GM/DL Hematocrit 27.0 % Mean Corpuscular Volume 72.5 FL Mean Corpuscular Hemoglobin 22.9 PG Mean Corpuscular Hemoglobin Concent 31.6 % Red Cell Distribution Width 15.8 % Platelet Count 162 TH/MM3 Mean Platelet Volume 10.5 FL Neutrophils (%) (Auto) 65.2 % Lymphocytes (%) (Auto) 25.3 % Monocytes (%) (Auto) 7.9 % Eosinophils (%) (Auto) 1.3 % Basophils (%) (Auto) 0.3 % Neutrophils # (Auto) 6.1 TH/MM3 Lymphocytes # (Auto) 2.4 TH/MM3 Monocytes # (Auto) 0.7 TH/MM3 Eosinophils # (Auto) 0.1 TH/MM3 Basophils # (Auto) 0.0 TH/MM3 CBC Comment DIFF FINAL Differential Comment Blood Urea Nitrogen 5 MG/DL Creatinine 0.61 MG/DL Random Glucose 73 MG/DL Total Protein 7.6 GM/DL Albumin 2.9 GM/DL Calcium Level 8.8 MG/DL Uric Acid 4.1 MG/DL Alkaline Phosphatase 198 U/L Aspartate Amino Transf (AST/SGOT) 18 U/L Alanine Aminotransferase (ALT/SGPT) 12 U/L Total Bilirubin 0.4 MG/DL Sodium Level 140 MEQ/L Potassium Level 3.3 MEQ/L Chloride Level 104 MEQ/L Carbon Dioxide Level 23.6 MEQ/L Anion Gap 12 MEQ/L Estimat Glomerular Filtration Rate 145 ML/MIN Urine Color YELLOW Urine Turbidity CLEAR Urine pH 8.0 Urine Specific E[place]y 1.008 Urine Protein 30 mg/dL Urine Glucose (UA) NEG mg/dL Urine Ketones TRACE mg/dL Urine Occult Blood NEG Urine Nitrite NEG Urine Bilirubin NEG Urine Urobilinogen 2.0 mg/dL Urine Leukocyte Esterase TRACE Urine RBC 1 /hpf Urine WBC 2 /hpf Urine Squamous Epithelial Cells 2 /hpf Urine Bacteria RARE /hpf Urine Mucus FEW /lpf Microscopic Urinalysis Comment CULT NOT INDICATED Urine Opiates Screen NEG Urine Barbiturates Screen NEG Urine Amphetamines Screen NEG Urine Benzodiazepines Screen NEG Urine Cocaine Screen NEG Urine Cannabinoids Screen POS Physical Exam SKIN: Warm and dry. HEAD: Normocephalic and atraumatic. EYES: No scleral icterus. No injection or drainage. ENT: No nasal drainage noted. Mucous membranes pink. Airway patent. NECK: Supple, trachea midline. No JVD. CARDIOVASCULAR: Regular rate and rhythm without murmurs, gallops, or rubs. RESPIRATORY: Breath sounds equal bilaterally. No accessory muscle use. ABDOMEN/GI: Abdomen soft, non-tender, bowel sounds present, no rebound, no guarding Gravid to [37-] weeks size Fundal Height: [35-] GENITOURINARY: External Genitalia: intact and normal in appearance Cervix: [-mid] Dilatation: [3-4-] Effacement: [-70] Station: [-2] Presentation: [vtx-] Membranes: [intact] Uterine Contractions: [-q 5-6 min] FHT's: Category: [1-] Baseline: [135-] Reactive: [R-] Variability: [mod-] Decels: [-0] EXTREMITIES: No cyanosis 2+ pitting edema in pretibial area painful. Improved from prior exam BACK: Nontender without obvious deformity. No CVA tenderness. NEUROLOGICAL: Awake and alert. Motor and sensory grossly within normal limits. Five out of 5 muscle strength in all muscle groups. Normal speech. Assessment and Plan Assessment and Plan 37/5 week intrauterine with hypertension in . Also with vision changes on admission. Admitting for induction of labor PIH labs on admission benign, blood pressures been borderline elevated since admission Per patient report she is GBS negative, obtaining records AROM performed at 0840 with clear fluid observed. IUPC was also placed at that time. Starting Pitocin at 08/02/29 We will recheck for cervical change in 2-3 hours SDW Anatoly Jones MD R1 Dec 20, 2017 09:49
[2017-12-20] MEDS ORDERED: fentaNYL 2MCG-BUPIV 0.125% INJ 150 ML EPIDURAL ONE (12:34)
[2017-12-20] MEDS ORDERED: ePHEDrine/NS 25 MG/5 ML SYRINGE ONE (12:35)
--- NOTE | 2017-12-20 12:47 | PD.LABORPN ---
Subjective Subjective Patient evaluated by Dr. Miller and Dr. Moe. Patient states that she is feeling some rectal pressure with contractions. Contractions becoming more intense. (Anatoly Moe MD R1) Objective Vital Signs Vital Signs Date Time Temp Pulse Resp B/P (MAP) Pulse Ox O2 Delivery O2 Flow Rate FiO2 12/20/17 12:00 68 135/83 (100) 12/20/17 11:32 73 137/97 (110) 12/20/17 11:30 76 145/104 (118) 12/20/17 11:15 18 12/20/17 11:01 98.7 12/20/17 11:00 76 138/92 (107) 12/20/17 10:39 73 154/100 (118) 12/20/17 10:30 65 149/115 (126) 12/20/17 10:15 16 12/20/17 10:00 73 133/88 (103) 12/20/17 09:30 74 139/87 (104) 12/20/17 09:15 16 12/20/17 09:07 98.1 12/20/17 09:04 64 141/88 (105) 12/20/17 08:34 70 142/89 (106) 12/20/17 08:32 98 146/100 (115) 12/20/17 07:15 16 12/20/17 07:05 71 126/70 (88) 12/20/17 06:24 87 109/73 (85) 12/20/17 06:22 16 12/20/17 05:28 18 12/20/17 05:27 50 144/80 (101) Objective Pelvic Exam: Dilatation: 5-6 Effacement: 80 Station: -1 Presentation: Vertex Membranes: Ruptured Uterine Contractions: Every 2-3 minutes FHT's: Category: 1 Baseline: 130 Reactive: Y Variability: Moderate Decels: Absent Weeks Gestation: 37 (Anatoly Moe MD R1) Assessment/Plan Assessment and Plan 27-year-old at 37/5 week intrauterine with hypertension in . Admitted for induction of labor PIH labs on admission benign, blood pressures been borderline elevated since admission Per patient report she is GBS negative, obtaining records AROM performed at 0840 with clear fluid observed. IUPC was also placed at that time. Pitocin started at 08/02/29, titrated up for adequate contractions Patient now at 5-6/80/-1 Category 1 FHT Patient electing for epidural at this time SDW Dr. Miller (Anatoly Moe MD R1) Assessment and Plan pt seen and examined. agree with above. BPs stable. cont pit. for epidural (Александр Miller MD) Anatoly Moe MD R1 Dec 20, 2017 12:47 Александр Miller MD Dec 20, 2017 14:28
[2017-12-20] MEDS ORDERED: DO NOT ADMINISTER ANTICOAGULANTS PRN (14:00)
[2017-12-20] MEDS ORDERED: fentaNYL 2MCG-BUPIV 0.125% 150 ML EPIDURAL PRN (14:00)
[2017-12-20] MEDS ORDERED: ePHEDrine/NS 25 MG/5 ML SYRINGE IV PUSH PRN (14:00)
[2017-12-20] MEDS ORDERED: NO SYSTEM NARCOTICS PRN (14:00)
--- NOTE | 2017-12-20 15:14 | PD.OB.DELI ---
Weeks gestation: 37 Pt started active labor?: Yes Active labor start date: Dec 20, 2017 Active labor start time: 12:30 Medical induction of labor?: Yes Artificial rupture of membrane: Yes Artificial ROM date: Dec 20, 2017 Artifical ROM time: 08:30 Anesthesia: Epidural Episiotomy: None Vaginal Delivery: Normal Presentation: Occiput anterior Nuchal Cord: None Delayed cord clamping (45 sec): Yes Infant: Female Delivery date: Dec 20, 2017 Delivery time: 15:00 One Minute : 8 Five Minute : 9 Weight: 2977 g Placenta: Spontaneous delivery, Intact, 3 vessel cord Laceration: No lacerations Estimated blood loss: 100 mL Additional Information Head delivered by maternal effort. Anterior shoulder delivered without complications. No complications with placental delivery. No lacerations visualized. Anatoly Moe MD R1 Dec 20, 2017 15:14
[2017-12-20] MEDS ORDERED: ACETAMINOPHEN 325 MG TAB PO PRN (15:15)
[2017-12-20] MEDS ORDERED: SODIUM CHLORIDE 0.9% FLUSH 10 ML FLUSH IV FLUSH PRN (15:15)
[2017-12-20] MEDS ORDERED: BENZOCAINE 20% TOPICAL SPRAY 60 ML CAN TOPICAL PRN (15:15)
[2017-12-20] MEDS ORDERED: ZOLPIDEM TARTRATE 5 MG TAB PO PRN (15:15)
[2017-12-20] MEDS ORDERED: DOCUSATE SODIUM 50 MG/SENNA 8.6 MG TAB PO PRN (15:15)
[2017-12-20] MEDS ORDERED: WITCH HAZEL 50%/GLYCERIN 12.5% 40 PAD JAR TOPICAL PRN (15:15)
[2017-12-20] MEDS ORDERED: ALUMINUM/MAGNESIUM/SIMETH 30 ML CUP PO PRN (15:15)
[2017-12-20] MEDS ORDERED: ONDANSETRON ODT 4 MG TAB PO PRN (15:15)
[2017-12-20] MEDS ORDERED: oxyCODONE/ACETAMINOPHEN 5 MG/325 MG TAB PO PRN (15:15)
[2017-12-20] MEDS ORDERED: OXYTOCIN 30 UNITS-500ML PREMIX 500 ML IV SCH (15:15)
[2017-12-20] MEDS: IBUPROFEN 800 MG TAB PO PRN (15:51)
[2017-12-20] MEDS ORDERED: DIPHTH/TETANUS/ACEL PERTUSSIS (BOOSTER) 0.5 ML VIAL/PFS IM ONE (16:00)
[2017-12-20] MEDS ORDERED: MEASLES, MUMPS, RUBELLA VACCINE 0.5 ML VIAL SQ ONE (16:00)
[2017-12-20] MEDS ORDERED: NIFEdipine 30 MG SUSTAINED RELEASE TAB PO SCH (17:30)
[2017-12-20] MEDS ORDERED: SODIUM CHLORIDE 0.9% FLUSH 10 ML FLUSH IV FLUSH SCH (21:00)
[2017-12-20] MEDS: oxyCODONE/ACETAMINOPHEN 5 MG/325 MG TAB PO PRN (21:30)
[2017-12-21 01:00] VITALS: BP 148/88; PULSE 88; RESP 20
[2017-12-21] MEDS: IBUPROFEN 800 MG TAB PO PRN ×2 (05:31→22:06)
[2017-12-21 07:30] LABS: AUTOMATED NEUTROPHIL # 6.8 TH/MM3 (1.8-7.7); BASOPHIL # 0.1 TH/MM3 (0-0.2); BASOPHIL % 0.6 % (0.0-2.0); EOSINOPHIL # 0.1 TH/MM3 (0-0.4); EOSINOPHIL % 1.3 % (0.0-4.0); HEMATOCRIT 24.9 % (35.0-46.0); HEMOGLOBIN 7.9 GM/DL (11.6-15.3); LYMPH % 15.2 % (9.0-44.0); LYMPHOCYTE # 1.4 TH/MM3 (1.0-4.8); MEAN CELL VOLUME 73.6 FL (80.0-100.0); MEAN CORPUSCULAR HEMOGLOBIN 23.4 PG (27.0-34.0); MEAN CORPUSCULAR HGB CONC 31.8 % (32.0-36.0); MEAN PLATELET VOLUME 10.5 FL (7.0-11.0); MONO % 8.5 % (0.0-8.0); MONOCYTE # 0.8 TH/MM3 (0-0.9); NEUT % 74.4 % (16.0-70.0); PLATELET COUNT 146 TH/MM3 (150-450); RED BLOOD COUNT 3.38 MIL/MM3 (4.00-5.30); RED CELL DISTRIBUTION WIDTH 15.9 % (11.6-17.2); WHITE BLOOD COUNT 9.2 TH/MM3 (4.0-11.0)
--- NOTE | 2017-12-21 08:42 | HHI.OB ---
Subjective Post Day: 1 Remarks Patient is a 27-year-old delivered at 37 weeks and 5 days. Patient is day 1 after . Patient's pain is not well-controlled: She currently denies any pain but reports that when the her pain flares, it is a 10 out of 10. Patient reports eating and drinking without any nausea or vomiting. Patient reports minimal bleeding. Patient has passed gas and bowel movements. Patient is walking without lower extremity pain or shortness of breath. Patient reports desire for contraception with Depo-Provera shot and formula-feeding. Objective Vitals/I&O Vital Signs Date Time Temp Pulse Resp B/P (MAP) Pulse Ox O2 Delivery O2 Flow Rate FiO2 12/21/17 01:00 88 20 148/88 (108) 12/21/17 01:00 148/88 (108) 12/20/17 20:00 76 20 153/90 (111) 12/20/17 18:30 97.7 71 20 147/80 (102) 12/20/17 17:56 18 12/20/17 17:46 69 153/93 (113) 12/20/17 17:15 84 153/107 (122) 12/20/17 17:09 18 12/20/17 17:01 74 145/90 (108) 12/20/17 16:46 67 152/105 (121) 12/20/17 16:42 18 12/20/17 16:30 73 142/96 (111) 12/20/17 16:15 18 12/20/17 16:14 77 142/92 (109) 12/20/17 16:00 81 12/20/17 15:55 18 12/20/17 15:49 77 141/89 (106) 12/20/17 15:45 87 150/106 (121) 12/20/17 15:31 66 146/89 (108) 12/20/17 15:29 16 12/20/17 15:29 98.4 12/20/17 15:15 65 135/88 (104) 12/20/17 15:14 68 144/93 (110) 12/20/17 14:30 68 133/82 (99) 12/20/17 14:00 65 144/89 (107) 12/20/17 14:00 16 6/22/18 13:48 150/84 (106) 12/20/17 13:48 67 12/20/17 13:30 70 147/117 (127) 12/20/17 13:28 18 12/20/17 13:27 71 134/84 (101) 12/20/17 13:25 65 12/20/17 13:20 67 12/20/17 13:20 68 153/85 (107) 12/20/17 13:15 68 12/20/17 13:15 77 144/91 (108) 12/20/17 13:10 64 12/20/17 13:10 85 140/86 (104) 12/20/17 13:05 69 12/20/17 13:05 76 137/90 (106) 12/20/17 13:00 69 145/91 (109) 12/20/17 13:00 68 12/20/17 12:56 74 149/94 (112) 12/20/17 12:55 73 155/99 (117) 12/20/17 12:55 71 12/20/17 12:50 72 12/20/17 12:30 69 153/97 (115) 12/20/17 12:00 68 135/83 (100) 12/20/17 11:32 73 137/97 (110) 12/20/17 11:30 76 145/104 (118) 12/20/17 11:15 18 12/20/17 11:01 98.7 12/20/17 11:00 76 138/92 (107) 12/20/17 10:39 73 154/100 (118) 12/20/17 10:30 65 149/115 (126) 12/20/17 10:15 16 12/20/17 10:00 73 133/88 (103) 12/20/17 09:30 74 139/87 (104) 12/20/17 09:15 16 12/20/17 09:07 98.1 12/20/17 09:04 64 141/88 (105) Objective Remarks GENERAL: Well-nourished, well-developed patient. CARDIOVASCULAR: Regular rate and rhythm without murmurs, gallops, or rubs. RESPIRATORY: Breath sounds equal bilaterally. No accessory muscle use. ABDOMEN/GI: Abdomen soft, non-tender. Fundus: Firm, non-tender at umbilicus. GENITOURINARY: Light to moderate bleeding. EXTREMITIES: No cyanosis or edema, non-tender, without signs of DVT. Medications and IVs Current Medications Medications (Trade) Dose Ordered Sig/Angeli Route Start Time Stop Time Status Last Admin Lactated Ringer's 1,000 ml @ 125 mls/hr Q8H IV 12/19/17 23:31 12/19/17 23:31 Lactated Ringer's 1,000 ml @ 3,000 mls/hr Q20M PRN IV 12/19/17 23:31 Sodium Chloride 1,000 ml @ 100 mls/hr Q10H PRN IV 12/19/17 23:51 (Xylocaine 1% Inj (50 ml)) 0.1 ml UNSCH X1 PRN I-DERMAL 12/19/17 23:45 12/22/17 23:44 (Bicitra Liq) 30 ml AFTER S[employer]OL CAREGIVER PO 12/19/17 23:45 12/23/17 23:44 (fentaNYL INJ) 50 mcg Q1H PRN IV PUSH 12/19/17 23:45 (fentaNYL INJ) 100 mcg Q1H PRN IV PUSH 12/19/17 23:45 (Xylocaine 1% Inj (50 ml)) 10 ml UNSCH X1 PRN INFIL 12/19/17 23:45 12/21/17 23:44 (Muri-Lube Oil) 10 ml UNSCH PRN TOPICAL 12/19/17 23:45 Oxytocin 500 ml @ 0 mls/hr TITRATE PRN IV 12/20/17 08:45 12/20/17 09:06 ([facility] [place] [facility]) No systemic narcotics to be given except... UNSCH PRN .XX 12/20/17 14:00 12/21/17 13:59 ([facility] [place] [facility]) DO NOT ADMINISTER ANY ANTICOAGUL... UNSCH PRN .XX 12/20/17 14:00 12/21/17 13:59 Fentanyl/ Bupivacaine/ Sodium Chlor 150 ml @ 0 mls/hr TITRATE PRN EPIDURAL 12/20/17 14:00 (ePHEDrine/NS 25 MG/5 ML SYR) 10 mg UNSCH PRN IV PUSH 12/20/17 14:00 12/21/17 13:59 (NS Flush) 2 ml BID IV FLUSH 12/20/17 21:00 12/20/17 21:00 (NS Flush) 2 ml UNSCH PRN IV FLUSH 12/20/17 15:15 (Tylenol) 650 mg Q4H PRN PO 12/20/17 15:15 (Motrin) 800 mg Q8H PRN PO 12/20/17 15:15 12/21/17 05:31 (Percocet 5-325 Mg) 1 tab Q4H PRN PO 12/20/17 15:15 12/20/17 21:30 (Percocet 5-325 Mg) 2 tab Q4H PRN PO 12/20/17 15:15 12/21/17 05:31 (Americaine 20% Top Spr) 1 spray Q4H PRN TOPICAL 12/20/17 15:15 12/20/17 21:27 (Tucks Pads) 1 applic QID PRN TOPICAL 12/20/17 15:15 12/20/17 21:27 (Clemencia-Colace) 2 tab Q12H PRN PO 12/20/17 15:15 12/20/17 21:27 (Ambien) 5 mg HS PRN PO 12/20/17 15:15 (Mag-Al Plus Susp Liq) 15 ml Q8H PRN PO 12/20/17 15:15 (Zofran Odt) 4 mg Q6H PRN PO 12/20/17 15:15 (Procardia Xl) 60 mg DAILY PO 12/21/17 09:00 Assessment/Plan Problem List: (1) (spontaneous vaginal delivery) ICD Codes: O80 - Encounter for full-term uncomplicated delivery (2) Anemia ICD Codes: D64.9 - Anemia, unspecified (3) PIH ( induced hypertension) ICD Codes: O13.9 - Gestational [-induced] hypertension without significant proteinuria, unspecified trimester Assessment and Plan Patient is a 27-year-old with a h/o PIH and anemia who delivered at 37 weeks and 5 days. Patient is day 1 after . Patient was counseled to do 6 weeks of pelvic rest. Patient was counseled to follow up in 6 weeks. Patient reports desire for contraception with Depo-Provera shot and formula- feeding. 1) PIH -Increase Procardia XL from 30 mg to 60 mg p.o. daily -Continue to monitor blood pressures 2) anemia -Hemoglobin went from 8.6-7.9 after delivery -Platelets went from 162-146 after delivery 3) routine care --AF VSS --Motrin and Percocet when necessary for pain --Encourage OOB --Pelvic rest for 6 weeks will need follow-up appointment at that time. --Contraception: Depo-Provera shot prior to discharge --Anticipate discharge tomorrow MICHAEL Miller Discharge Planning Likely tomorrow Naveen Israel MD R2 Dec 21, 2017 08:42
[2017-12-21] MEDS: NIFEdipine 60 MG SUSTAINED RELEASE TAB PO SCH (09:08)
[2017-12-21] MEDS ORDERED: medroxyPROGESTERone ACETATE SUSP 150 MG/ML SYRINGE IM ONE (09:15)
[2017-12-21 20:00] VITALS: BP 129/80; PULSE 112; RESP 20; TEMP 97.9
[2017-12-21] MEDS: oxyCODONE/ACETAMINOPHEN 5 MG/325 MG TAB PO PRN (22:06)
[2017-12-22 01:00] VITALS: BP 115/67; PULSE 82; RESP 18
[2017-12-22] MEDS ORDERED: diphenhydrAMINE HCL 25 MG CAP PO PRN (01:45)
[2017-12-22 04:59] VITALS: BP 124/69; PULSE 53; RESP 18
--- NOTE | 2017-12-22 07:54 | HHI.OB ---
Subjective Post Day: 2 Remarks Patient is a 27-year-old delivered at 37 weeks and 5 days. Patient is day 2 after NVD. Patient's pain is well-controlled. Patient reports eating and drinking without any nausea or vomiting. Patient reports minimal bleeding. Patient has passed gas but no bowel movements. Patient is walking without lower extremity pain or shortness of breath. Patient reports desire for contraception and formula-feeding. (Naveen Israel MD R2) Remarks Patient seen and evaluated with resident under direct supervision, agree with assessment and plan. (Major Kim MD) Objective Vitals/I&O Vital Signs Date Time Temp Pulse Resp B/P (MAP) Pulse Ox O2 Delivery O2 Flow Rate FiO2 12/22/17 04:59 53 18 124/69 (87) 12/22/17 01:00 82 115/67 (83) 12/22/17 01:00 18 12/21/17 20:00 97.9 112 20 129/80 (96) Objective Remarks GENERAL: Well-nourished, well-developed patient. CARDIOVASCULAR: Regular rate and rhythm without murmurs, gallops, or rubs. RESPIRATORY: Breath sounds equal bilaterally. No accessory muscle use. ABDOMEN/GI: Abdomen soft, non-tender. Fundus: Firm, non-tender at umbilicus. GENITOURINARY: Light to moderate bleeding. EXTREMITIES: No cyanosis or edema, non-tender, without signs of DVT. Medications and IVs Current Medications Medications (Trade) Dose Ordered Sig/Angeli Route Start Time Stop Time Status Last Admin Lactated Ringer's 1,000 ml @ 125 mls/hr Q8H IV 12/19/17 23:31 12/19/17 23:31 Lactated Ringer's 1,000 ml @ 3,000 mls/hr Q20M PRN IV 12/19/17 23:31 Sodium Chloride 1,000 ml @ 100 mls/hr Q10H PRN IV 12/19/17 23:51 (Xylocaine 1% Inj (50 ml)) 0.1 ml UNSCH X1 PRN I-DERMAL 12/19/17 23:45 12/22/17 23:44 (Bicitra Liq) 30 ml ATM MECHANIC PO 12/19/17 23:45 12/23/17 23:44 (fentaNYL INJ) 50 mcg Q1H PRN IV PUSH 12/19/17 23:45 (fentaNYL INJ) 100 mcg Q1H PRN IV PUSH 12/19/17 23:45 (Muri-Lube Oil) 10 ml UNSCH PRN TOPICAL 12/19/17 23:45 Oxytocin 500 ml @ 0 mls/hr TITRATE PRN IV 12/20/17 08:45 12/20/17 09:06 Fentanyl/ Bupivacaine/ Sodium Chlor 150 ml @ 0 mls/hr TITRATE PRN EPIDURAL 12/20/17 14:00 (NS Flush) 2 ml BID IV FLUSH 12/20/17 21:00 12/20/17 21:00 (NS Flush) 2 ml UNSCH PRN IV FLUSH 12/20/17 15:15 (Tylenol) 650 mg Q4H PRN PO 12/20/17 15:15 (Motrin) 800 mg Q8H PRN PO 12/20/17 15:15 12/21/17 22:06 (Percocet 5-325 Mg) 1 tab Q4H PRN PO 12/20/17 15:15 12/21/17 22:06 (Percocet 5-325 Mg) 2 tab Q4H PRN PO 12/20/17 15:15 12/21/17 05:31 (Americaine 20% Top Spr) 1 spray Q4H PRN TOPICAL 12/20/17 15:15 12/20/17 21:27 (Tucks Pads) 1 applic QID PRN TOPICAL 12/20/17 15:15 12/20/17 21:27 (Clemencia-Colace) 2 tab Q12H PRN PO 12/20/17 15:15 12/20/17 21:27 (Ambien) 5 mg HS PRN PO 12/20/17 15:15 (Mag-Al Plus Susp Liq) 15 ml Q8H PRN PO 12/20/17 15:15 (Zofran Odt) 4 mg Q6H PRN PO 12/20/17 15:15 (Procardia Xl) 60 mg DAILY PO 12/21/17 09:00 12/21/17 09:08 (Benadryl) 25 mg Q8HR PRN PO 12/22/17 01:45 12/22/17 01:54 (Naveen Israel MD R2) Assessment/Plan Problem List: (1) (spontaneous vaginal delivery) ICD Codes: O80 - Encounter for full-term uncomplicated delivery (2) Anemia ICD Codes: D64.9 - Anemia, unspecified (3) PIH ( induced hypertension) ICD Codes: O13.9 - Gestational [-induced] hypertension without significant proteinuria, unspecified trimester Assessment and Plan Patient is a 27-year-old with a h/o PIH and anemia who delivered at 37 weeks and 5 days. Patient is day 2 after . Patient was counseled to do 6 weeks of pelvic rest. Patient was counseled to follow up in 6 weeks. Patient reports desire for contraception with Depo-Provera shot and formula- feeding. 1) PIH -Increased yesterday Procardia XL 60 mg p.o. daily; blood pressure now within normal limits -Discharge home with this medication 2) anemia -Hemoglobin went from 8.6-7.9 after delivery -Platelets went from 162-146 after delivery 3) routine care --AF VSS --Motrin and Percocet when necessary for pain --Encourage OOB --Pelvic rest for 6 weeks will need follow-up appointment at that time. --Contraception: Depo-Provera shot prior to discharge --Anticipate discharge today d/w Dr. Kim Discharge Planning Likely today (Naveen Israel MD R2) Naveen Israel MD R2 Dec 22, 2017 07:54 Major Kim MD Dec 22, 2017 09:47
[2017-12-22] MEDS ORDERED: NIFE60TA8 PO (07:56)
[2017-12-22] MEDS ORDERED: IBUP1TAB7 PO (07:56)
--- NOTE | 2017-12-22 07:57 | HHI.DCPOC ---
Discharge Care Plan Diagnosis: (1) (spontaneous vaginal delivery) (2) PIH ( induced hypertension) (3) Anemia Report Symptoms to Your Doctor -Temperature above 100.5 degrees -Redness, of incision or excessive or foul smelling drainage -Unusual pain or calf pain -Increased vaginal bleeding -Painful or difficulty urinating -Feelings of extreme sadness or anxiety after 2 weeks Goals to Promote Your Health * To prevent worsening of your condition and complications, please take medication as prescribed and follow-up with your doctor before he run out of you blood pressure medication. Directions to Meet Your Goals Take your medications as prescribed Follow your dietary instruction Follow activity as directed Ensure plenty of rest for recovery Drink fluids for hydration Keep your appointments as scheduled Take your immunizations and boosters as scheduled If your symptoms worsen call your PCP, if no PCP go to Urgent Care Center or Emergency Room Smoking is Dangerous to Your Health. Avoid second hand smoke Call the 24-hour crisis hotline for domestic abuse at Naveen Israel MD R2 Dec 22, 2017 07:57
[2017-12-22 10:00] VITALS: BP 113/65; PULSE 86; RESP 17; TEMP 98.1
[2017-12-22] MEDS ORDERED: medroxyPROGESTERone ACETATE SUSP 150 MG/ML SYRINGE IM ONE (11:45)
[2017-12-22 12:10] VITALS: BP 129/79; PULSE 77
[2017-12-22] MEDS: IBUPROFEN 800 MG TAB PO PRN (12:33)
[2017-12-22] MEDS: NIFEdipine 60 MG SUSTAINED RELEASE TAB PO SCH (12:33)
== END 2017-12-22 15:19 | disposition home or self-care (01) | DRG 775 ==
LOC: HOBED 22:35 → H2EB 23:22 → H1EA 12-20 18:42
PROVIDERS: ADMIT Obstetrics & Gynecology Maternal & Fetal Medicine; ATTEND Obstetrics & Gynecology Maternal & Fetal Medicine
PROC: 3E033VJ Introduction of Other Hormone into Peripheral Vein, Percutaneous Approach (ICD-10-PCS; 2017-12-19)
PROC: 10907ZC Drainage of Amniotic Fluid, Therapeutic from Products of Conception, Via Natural or Artificial Opening (ICD-10-PCS; principal; 2017-12-20)
PROC: 10E0XZZ Delivery of Products of Conception, External Approach (ICD-10-PCS; 2017-12-20)
DX: O13.4 Gestational [pregnancy-induced] hypertension without significant proteinuria, complicating childbirth (principal); O99.02 Anemia complicating childbirth; Z37.0 Single live birth; Z3A.38 38 weeks gestation of pregnancy; Z3A.37 37 weeks gestation of pregnancy
CPT/HCPCS: 59020; 80053; 80307; 81001; 84550; 85025; 86900; 86901; J1050; J2590; J7120